=== PATIENT | female | born 1935 | race Caucasian/White ===

== ENCOUNTER → 2018-04-09 16:58 | Outpatient (CLI) | payer MEDICARE ==
[~2018-04-09 16:58] MED LIST: ASPIRIN325 MG PO; BACTRIM 400-801 TAB PO; BACTRIM DS TABL1 TAB PO; BAUSCH EACH EYE; LIPITOR20 MG PO; PEPCID40 MG PO; ZETIA10 MG PO; [UNRECOGNIZED DRUG - OTHER] EACH EYE
== END | disposition home or self-care (01) ==
LOC: D.LABREF 16:58
DX: N39.0 Urinary tract infection, site not specified (principal)

== ENCOUNTER → 2018-04-16 18:08 | Outpatient (CLI) | payer MEDICARE | END | disposition home or self-care (01) | LOC: D.LABREF 18:08 | DX: N39.0 Urinary tract infection, site not specified (principal) ==

== ENCOUNTER → 2018-05-14 15:33 | Outpatient (CLI) | payer MEDICARE ==
[2018-05-14 19:05] LABS: APPEARANCE CLEAR (CLEAR); COLOR YELLOW (YELLOW)
[2018-05-14 19:06] LABS: BACTERIA MANY /hpf (NONE SEEN); BILIRUBIN NEGATIVE (NEGATIVE); EPITHELIAL CELLS 0-5 /hpf (0-5); GLUCOSE NEGATIVE (NEGATIVE); KETONE NEGATIVE (NEGATIVE); NITRITE NEGATIVE (NEGATIVE); PROTEIN NEGATIVE (NEGATIVE); RED CELLS - URINE 0-5 /hpf (0-5); UROBILINOGEN NORMAL (NORMAL)
== END | disposition home or self-care (01) ==
LOC: D.LABREF 15:33
PROVIDERS: Urology
DX: R33.9 Retention of urine, unspecified (principal); R31.9 Hematuria, unspecified; I10 Essential (primary) hypertension